=== PATIENT | male | born 1990 | race American Indian/Alaskan Native ===

== ENCOUNTER 2018-03-03 15:45 | Emergency (ER) | payer MEDICARE ==
[2018-03-03 18:52] LABS: Basophils # (Auto) 0.1 K/mm3 (0.0-0.1); Basophils % (Auto) 0.8 % (0.0-1.8); Eosinophils # (Auto) 0.3 K/mm3 (0.0-0.4); Eosinophils % (Auto) 2.3 % (0.0-4.3); Hematocrit 42.1 % (35.5-45.6); Hemoglobin 13.6 gm/dl (11.8-15.2); Lymphocytes # (Auto) 3.1 K/mm3 (1.2-5.4); Lymphocytes % (Auto) 25.4 % (13.4-35.0); Mean Corpuscular HGB Conc 32 % (32-34); Mean Corpuscular Hemoglobin 27 pg (28-32); Mean Corpuscular Volume 85 fl (84-94); Monocytes # (Auto) 0.8 K/mm3 (0.0-0.8); Monocytes % (Auto) 6.8 % (0.0-7.3); Platelet Count 257 K/mm3 (140-440); Red Blood Count 4.98 M/mm3 (3.65-5.03); Red Cell Distribution Width 15.8 % (13.2-15.2)
[2018-03-03 19:08] LABS: Alanine Aminotransferase 24 units/L (7-56); Albumin 4.3 g/dL (3.9-5); BUN/Creatinine Ratio 10; Blood Urea Nitrogen 7 mg/dL (9-20); Calcium 9.7 mg/dL (8.4-10.2); Hemolysis Index 7
[2018-03-03 21:56] VITALS: BP 127/85
--- NOTE | 2018-03-04 00:33 | Emergency Department Report ---
HPI - General Chief Complaint: Psych Time Seen by Provider: 03/04/18 00:18 - [facility] HPI: Room 18 The patient is a 47-year-old male present with a chief complaint of suicidal ideation. The patient states she's been depressed for the past 3 weeks. Patient states she's been taking his Prozac but has not been helping his symptoms. Patient states he's had suicidal ideation for the past 3 weeks. The patient states he had a plan to hang himself from his door. Patient states he never followed through with this plan because his roommate was always present. Patient denies any attempts at actually harming himself within the past 3 weeks. Location: Mental state Duration: 3 weeks Quality: Suicidal Severity: Severe Modifying factors: [see above] Context: [see above] Mode of transportation: [not driving] ED Past Medical Hx - Past Medical History Previous Medical History?: No - Surgical History Past Surgical History?: No - Family History Family history: no significant - Social History Smoking Status: Current Every Day Smoker (1/2 pack per day) Substance Use Type: Alcohol (occasional), Marijuana ED Review of Systems ROS: Stated complaint: SUICIDAL Other details as noted in HPI Constitutional: no symptoms reported Eyes: denies: eye pain ENT: denies: throat pain Respiratory: no symptoms reported Cardiovascular: denies: chest pain Endocrine: no symptoms reported Gastrointestinal: denies: abdominal pain Genitourinary: denies: dysuria Musculoskeletal: denies: back pain Neurological: denies: headache Psychiatric: suicidal thoughts Physical Exam - Physical Exam Vital Signs: Vital Signs 03/03/18 03/03/18 16:16 21:53 Temperature 98.6 F 98.1 F Pulse Rate 96 H 59 L Respiratory 16 18 Rate Blood Pressure 137/73 127/85 O2 Sat by Pulse 98 100 Oximetry Physical Exam: GENERAL: The patient is well-developed well-nourished male lying on stretcher not appearing to be in acute distress. [] HEENT: Normocephalic. Atraumatic. Extraocular motions are intact. Patient has moist mucous membranes. NECK: Supple. Trachea midline CHEST/LUNGS: Clear to auscultation. There is no respiratory distress noted. HEART/CARDIOVASCULAR: Regular. There is no tachycardia. There is no gallop rub or murmur. ABDOMEN: Abdomen is soft, nontender. Patient has normal bowel sounds. There is no abdominal distention. SKIN: There is no rash. There is no edema. There is no diaphoresis. NEURO: The patient is awake, alert, and oriented. The patient is cooperative. The patient has normal speech MUSCULOSKELETAL: There is no evidence of acute injury. ED Course Vital Signs 03/03/18 03/03/18 16:16 21:53 Temperature 98.6 F 98.1 F Pulse Rate 96 H 59 L Respiratory 16 18 Rate Blood Pressure 137/73 127/85 O2 Sat by Pulse 98 100 Oximetry ED Medical Decision Making - Lab Data Result diagrams: 03/03/18 18:27 03/03/18 18:27 - Differential Diagnosis suicidal ideation Critical care attestation.: If time is entered above; I have spent that time in minutes in the direct care of this critically ill patient, excluding procedure time. ED Disposition Clinical Impression: Suicidal ideation Disposition: DC/TX-65 PSY HOSP/PSY UNIT Is pt being admited?: No Does the pt Need Aspirin: No Condition: Stable Referrals: PRIMARY CARE, [Primary Care Provider] - 3-5 Days Time of Disposition: 00:33 (awaiting acceptance)
[2018-03-04 01:07] LABS: Bilirubin,Urine NEG (Negative); Blood,Urine NEG (Negative); Color,Urine Yellow (Yellow); Protein,Urine <15 mg/dL mg/dL (Negative); Urobilinogen,Urine < 2.0 mg/dL (<2.0); WBC,Urine < 1.0 /HPF (0.0-6.0)
[2018-03-04 01:21] LABS: Amphetamine Screen,Urine PRESUMPTIVE NEGATIVE; Benzodiazepines Screen,Urine PRESUMPTIVE NEGATIVE; Cocaine Screen,Urine PRESUMPTIVE NEGATIVE; Methadone Screen,Urine PRESUMPTIVE NEGATIVE; Opiate Screen,Urine PRESUMPTIVE NEGATIVE
[2018-03-04 01:38] LABS: Cannabinoid Screen,Urine PRESUMPTIVE POSITIVE
--- NOTE | 2018-03-04 14:24 | Consultation ---
History of Present Illness - Reason for Consult Consult date: 03/04/18 Reason for consult: Mental Health Evaluation Requesting physician: FELECIA ABBOTT - Chief Complaint Chief complaint: "The voices" - History of Present Psychiatric Illness 47-year-old male present with a chief complaint of suicidal ideation. Today the patient is calm, but disorganized during the assessment. He stated that the voices is causing his depression. He is adamant that hearing voices is his "biggest issues." He wasn't lucid during the interview and had to be redirected several times to keep him on topic. He continue to endorse SI's. Overall, this patient isn't a good historian at this time. Medications and Allergies Allergies Allergy/AdvReac Type Severity Reaction Status Date / Time No Known Allergies Allergy Unverified 03/03/18 16:19 Past psychiatric history - Past Medical History Past Medical History: No medical history Past Surgical History: No surgical history - past Psychiatric treatment and history psychiatric treatment history: The patent is seen by [facility] outpatient behavioral health. He denies a fam psy hx. - Social History Social history: Lives alone, other Mental Status Exam - Vital signs Last Vital Signs Temp 98.1 F 03/03/18 21:53 Pulse 59 L 03/03/18 21:53 Resp 18 03/03/18 21:53 BP 127/85 03/03/18 21:53 Pulse Ox 100 03/03/18 21:53 - Exam Narrative exam: MSE: Appearance: calm, cooperative Behavior: regular eye contact Speech: regular rate and tone Mood: "okay" Affect: constricted Thought Process: disorganized Thought Content: denies HI's and VH's Motor Activity: ambulatory Cognition: A/O x 3 Insight: poor Judgment: poor Results Result Diagrams: 03/03/18 18:27 03/03/18 18:27 Abnormal lab results 03/03/18 03/03/18 03/03/18 Range/Units 18:27 18:27 18:27 WBC 12.2 H (4.5-11.0) K/mm3 MCH 27 L (28-32) pg RDW 15.8 H (13.2-15.2) % Seg Neutrophils # 7.9 H (1.8-7.7) K/mm3 BUN 7 L (9-20) mg/dL Creatinine 0.7 L (0.8-1.5) mg/dL Salicylates < 0.3 L (2.8-20.0) mg/dL Acetaminophen (10.0-30.0) ug/mL 03/03/18 Range/Units 18:27 WBC (4.5-11.0) K/mm3 MCH (28-32) pg RDW (13.2-15.2) % Seg Neutrophils # (1.8-7.7) K/mm3 BUN (9-20) mg/dL Creatinine (0.8-1.5) mg/dL Salicylates (2.8-20.0) mg/dL Acetaminophen < 5.0 L (10.0-30.0) ug/mL All other labs normal. Assessment and Plan Assessment and plan: Impression: Unspecified Mood DO with psy features. Cannabis Use DO. Today the patient is calm, but disorganized during the assessment. The patient endorses SI 's. DDx: Bipolar DO with psychosis, R/O Substance Induced Psychosis/Mood DO Recommendation/Plan: Continue 1013 with placement to [facility] today.
== END 2018-03-04 11:50 ==
LOC: ED 15:45
DX: R45.851 Suicidal ideations (principal); F17.200 Nicotine dependence, unspecified, uncomplicated; F12.90 Cannabis use, unspecified, uncomplicated
CPT/HCPCS: 36415; 80053; 80307; 81001; 85025; 99285; G0480; 80320

== ENCOUNTER 2019-03-31 04:12 | Emergency (ER) | payer MEDICARE ==
--- NOTE | 2019-03-31 04:48 | Emergency Department Report ---
ED Psych HPI - General Stated Complaint: MH EVAL/FINGER LAC Time Seen by Provider: 03/31/19 04:41 - History of Present Illness Initial Comments: Patient is 28 years old male with history of schizophrenia. Patient brought to the emergency room via EMS and police for evaluation of sudden onset of aggressiveness. Patient lived in a jail. EMS stated that patient started fighting with other residents. In the ER patient is agitated and uncooperative. Complaint: other - Related Data Home Medications Medication Instructions Recorded Confirmed Last Taken No Known Home Medications [No 03/31/19 03/31/19 Unknown Reported Home Medications] Allergies Allergy/AdvReac Type Severity Reaction Status Date / Time No Known Allergies Allergy Unverified 03/03/18 16:19 ED Review of Systems ROS: Stated complaint: MH EVAL/FINGER LAC Other details as noted in HPI Comment: All other systems reviewed and negative Constitutional: denies: chills, fever Respiratory: denies: cough, shortness of breath Cardiovascular: denies: chest pain, palpitations Gastrointestinal: denies: abdominal pain, nausea, vomiting ED Past Medical Hx - Social History Smoking Status: Current Every Day Smoker (1/2 pack per day) Substance Use Type: Alcohol (occasional), Marijuana - Medications Home Medications: Home Medications Medication Instructions Recorded Confirmed Last Taken Type No Known Home Medications [No 03/31/19 03/31/19 Unknown History Reported Home Medications] ED Physical Exam - General General appearance: alert, in no apparent distress, other (agitated) - Head Head exam: Present: atraumatic, normocephalic, normal inspection - ENT ENT exam: Present: normal exam, normal orophraynx, mucous membranes moist - Neck Neck exam: Present: normal inspection, full ROM. Absent: tenderness, meningismus, lymphadenopathy - Respiratory Respiratory exam: Present: normal lung sounds bilaterally - Cardiovascular Cardiovascular Exam: Present: regular rate, normal rhythm, normal heart sounds - GI/Abdominal GI/Abdominal exam: Present: soft, normal bowel sounds. Absent: distended, tenderness, guarding, rebound, rigid, organomegaly, mass, bruit, pulsatile mass, hernia - Extremities Exam Extremities exam: Present: normal inspection, full ROM, normal capillary refill. Absent: tenderness - Back Exam Back exam: Present: normal inspection, full ROM. Absent: CVA tenderness (R), CVA tenderness (L) - Neurological Exam Neurological exam: Present: alert, oriented X3, CN II-XII intact, normal gait - Psychiatric Psychiatric exam: Present: agitated. Absent: homicidal ideation, suicidal ideation - Skin Skin exam: Present: warm, intact, normal color ED Course Vital Signs 03/31/19 03/31/19 04:42 07:00 Temperature 98.3 F 97.4 F L Pulse Rate 98 H 90 Respiratory 18 20 Rate Blood Pressure 133/82 Blood Pressure 133/82 138/75 [Left] O2 Sat by Pulse 99 98 Oximetry ED Medical Decision Making - Lab Data Result diagrams: 03/31/19 05:16 03/31/19 05:16 Critical care attestation.: If time is entered above; I have spent that time in minutes in the direct care of this critically ill patient, excluding procedure time. ED Disposition Clinical Impression: Schizophrenia, Acute psychosis Disposition: DC/TX-65 PSY HOSP/PSY UNIT Is pt being admited?: No Condition: Stable Referrals: PRIMARY CARE [Primary Care Provider] - 3-5 Days
[2019-03-31 05:09] LABS: Amphetamine Screen,Urine PRESUMPTIVE NEGATIVE; Benzodiazepines Screen,Urine PRESUMPTIVE NEGATIVE; Cannabinoid Screen,Urine PRESUMPTIVE NEGATIVE; Cocaine Screen,Urine PRESUMPTIVE NEGATIVE; Methadone Screen,Urine PRESUMPTIVE NEGATIVE; Opiate Screen,Urine PRESUMPTIVE NEGATIVE
[2019-03-31 05:11] LABS: Bacteria,Urine 1+ /HPF (Negative); Bilirubin,Urine NEG (Negative); Blood,Urine SM (Negative); Color,Urine Colorless (Yellow); Protein,Urine <15 mg/dL mg/dL (Negative); Urobilinogen,Urine < 2.0 mg/dL (<2.0); WBC,Urine < 1.0 /HPF (0.0-6.0)
[2019-03-31 05:24] LABS: RBC,Urine < 1.0 /HPF (0.0-6.0)
[2019-03-31 05:46] LABS: Basophils # (Auto) 0.1 K/mm3 (0.0-0.1); Basophils % (Auto) 0.6 % (0.0-1.8); Eosinophils # (Auto) 0.1 K/mm3 (0.0-0.4); Hemoglobin 14.2 gm/dl (11.8-15.2); Lymphocytes % (Auto) 30.3 % (13.4-35.0); Mean Corpuscular HGB Conc 33 % (32-34); Mean Corpuscular Volume 85 fl (84-94); Monocytes # (Auto) 0.8 K/mm3 (0.0-0.8); Monocytes % (Auto) 8.5 % (0.0-7.3); Platelet Count 228 K/mm3 (140-440); Red Blood Count 5.07 M/mm3 (3.65-5.03); Red Cell Distribution Width 15.1 % (13.2-15.2)
[2019-03-31 06:01] LABS: BUN/Creatinine Ratio 6; Blood Urea Nitrogen 5 mg/dL (9-20); Calcium 9.2 mg/dL (8.4-10.2); Hemolysis Index 9
[2019-03-31 08:15] VITALS: BP 138/75
--- NOTE | 2019-03-31 09:12 | Consultation ---
History of Present Illness - Reason for Consult Consult date: 03/31/19 Reason for consult: Mental Health Evaluation Requesting physician: YOEL MANJARREZ - Chief Complaint Chief complaint: "I'm from [facility]" - History of Present Psychiatric Illness 28 y.o. Aa male who presented to the ER for aggressive behavior per the local police. Today the patient was uncooperative and delusional during the as sessment. He was asked several questions about his mental health, he replied, "I am from [place]." Several attempts was made to engage the patient, but was unsuccessful. Per the patient's assigned nurse, he became agitated and he would not follow commands. Thorazine 25 mg IM was ordered once for acute psychosis. Medications and Allergies Allergies Allergy/AdvReac Type Severity Reaction Status Date / Time No Known Allergies Allergy Unverified 03/03/18 16:19 Home Medications Medication Instructions Recorded Confirmed Last Taken Type No Known Home Medications [No 03/31/19 03/31/19 Unknown History Reported Home Medications] Active Meds: Active Medications Chlorpromazine HCl (Thorazine) 25 mg IM ONCE ONE Stop: 03/31/19 08:59 Past psychiatric history - Past Medical History Past Medical History: other (Unable to obtain ) Past Surgical History: Other (Unable to obtain) - past Psychiatric treatment and history psychiatric treatment history: Unable to obtain a psy hx and a fam psy hx. - Social History Social history: other (Unabel to obtain ) Mental Status Exam - Vital signs Last Vital Signs Temp 97.4 F L 03/31/19 07:00 Pulse 90 03/31/19 07:00 Resp 20 03/31/19 07:00 BP 138/75 03/31/19 07:00 Pulse Ox 98 03/31/19 07:00 - Exam Narrative exam: MSE: Appearance: uncooperative Behavior: stare with a regular blank rate Speech: regular rate and tone Mood: unable to assess Affect: flat Thought Process: unable to assess logical Thought Content: no gestures of SI/HI's Motor Activity: sitting up in the bed Cognition: alert Insight: unable to assess Judgment: poor Results Result Diagrams: 03/31/19 05:16 03/31/19 05:16 Abnormal lab results 03/31/19 03/31/19 03/31/19 Range/Units 04:45 05:16 05:16 RBC 5.07 H (3.65-5.03) M/mm3 [place] % (Auto) 8.5 H (0.0-7.3) % Sodium 136 L (137-145) mmol/L BUN 5 L (9-20) mg/dL Glucose 105 H (75-100) mg/dL Ur Specific [place] 1.000 L (1.003-1.030) Salicylates (2.8-20.0) mg/dL Acetaminophen (10.0-30.0) ug/mL 03/31/19 03/31/19 Range/Units 05:16 05:16 RBC (3.65-5.03) M/mm3 [place] % (Auto) (0.0-7.3) % Sodium (137-145) mmol/L BUN (9-20) mg/dL Glucose (75-100) mg/dL Ur Specific [place] (1.003-1.030) Salicylates < 0.3 L (2.8-20.0) mg/dL Acetaminophen < 5.0 L (10.0-30.0) ug/mL All other labs normal. Assessment and Plan Assessment and plan: Impression: Unspecified Psychosis. Today the patient was uncooperative and delusional during the assessment. UDS was negative. Recommendation/Plan: Continue 1013. Dispo: The patient was accepted at [facility] for inpatient psy services. Will staff with Dr Nikolas Meyer.
[2019-03-31] MEDS ORDERED: chlorproMAZINE 50 MG/2 ML INJ IM ONE (09:30)
== END 2019-03-31 11:05 ==
LOC: EEVIPCON 04:12 → ED 04:12
DX: F91.1 Conduct disorder, childhood-onset type (principal); F20.9 Schizophrenia, unspecified; F17.200 Nicotine dependence, unspecified, uncomplicated; F12.10 Cannabis abuse, uncomplicated
CPT/HCPCS: 36415; 80048; 80307; 81001; 85025; 96372; 99285; J3230; 80320; G0480

== ENCOUNTER 2019-08-21 23:50 | Emergency (ER) | payer MEDICARE ==
[2019-08-22] MEDS ORDERED: HALOPERIDOL LACTATE 5 MG/1 ML INJ IM PRN (00:29)
[2019-08-22] MEDS ORDERED: LORazepam 2 MG/ML VIAL IM PRN (00:29)
[2019-08-22] MEDS ORDERED: ALPRAZolam 1 MG TAB PO ONE (00:29)
--- NOTE | 2019-08-22 00:30 | Emergency Department Report ---
ED General Adult HPI - General Chief complaint: Psych Stated complaint: MH EVALUATION Time Seen by Provider: 08/22/19 00:19 Source: patient, police, RN notes reviewed, old records reviewed Mode of arrival: Ambulatory Limitations: Other (Patient is disorganized and appears to be psychotic) - History of Present Illness Initial comments: Patient is a 28-year-old gentleman with a history of psychiatric disease. He is brought to the hospital by police department, with the following behavior observed at the time of pickup: "Talking to himself, confused." Police documentation includes that the patient made threats to harm himself, made threats to harm others, appeared upset, appeared cooperative. To me, the patient has a complaint of "I need Wellbutrin." The patient denies physical pain. The patient is a poor historian. He indicates he is not tried to overdose. He is evasive about questions of wanting to harm himself or harm other people. He keeps saying that he "needs Wellbutrin." The patient is not accompanied by friends or family at this time. No additional collateral information is available at this time. The patient himself cannot describe exacerbating or relieving factors, or qualitative nature of his symptoms. -: unknown Quality: other Consistency: other Improves with: other Worsens with: other Associated Symptoms: other - Related Data Home Medications Medication Instructions Recorded Confirmed Last Taken No Known Home Medications [No 03/31/19 03/31/19 Unknown Reported Home Medications] Allergies Allergy/AdvReac Type Severity Reaction Status Date / Time No Known Allergies Allergy Unverified 03/03/18 16:19 ED Review of Systems ROS: Stated complaint: MH EVALUATION Other details as noted in HPI Comment: Unobtainable due to pts medical conditions (The patient is psychotic, delusional and a poor historian. The patient denies physical pain.) ED Past Medical Hx - Past Medical History Previous Medical History?: Yes Hx Psychiatric Treatment: Yes (bipolar-schizophrenia) - Surgical History Past Surgical History?: Yes Additional Surgical History: tonsillectomy - Social History Smoking Status: Current Every Day Smoker Substance Use Type: Alcohol, Marijuana - Medications Home Medications: Home Medications Medication Instructions Recorded Confirmed Last Taken Type No Known Home Medications [No 03/31/19 03/31/19 Unknown History Reported Home Medications] ED Physical Exam - General Limitations: Other (Disorganized behavior) General appearance: alert, anxious, other (Agitated) - Head Head exam: Present: atraumatic, normocephalic - Eye Eye exam: Present: normal appearance, EOMI, other (Visual acuity is intact to finger counting and color perception at a close distance). Absent: nystagmus - ENT ENT exam: Present: normal exam, normal orophraynx, mucous membranes moist, normal external ear exam - Neck Neck exam: Present: normal inspection, full ROM. Absent: tenderness, meningismus - Respiratory Respiratory exam: Present: normal lung sounds bilaterally. Absent: respiratory distress - Cardiovascular Cardiovascular Exam: Present: regular rate, normal rhythm, normal heart sounds. Absent: bradycardia, tachycardia, irregular rhythm, systolic murmur, diastolic murmur, rubs, gallop - GI/Abdominal GI/Abdominal exam: Present: soft. Absent: distended, tenderness, guarding, rebound, rigid, pulsatile mass - Rectal Rectal exam: Present: deferred - Extremities Exam Extremities exam: Present: normal inspection, full ROM, other (2+ pulses noted in the bilateral upper extremities. There is no long bony tenderness. The compartments are soft.). Absent: calf tenderness - Back Exam Back exam: Present: normal inspection, full ROM. Absent: tenderness, CVA tenderness (R), CVA tenderness (L), paraspinal tenderness, vertebral tenderness - Neurological Exam Neurological exam: Present: alert (Patient is alert to name. He knows that he is at the hospital but he does not know which hospital. He knows the year), normal gait, other (There is no facial droop. The tongue is midline. Extraocular movements are intact bilaterally. There is 5 out of 5 strength in bilateral upper and lower extremities. Sensation is intact to light touch bilateral upper and lower extremities. There is a normal gait.) - Psychiatric Psychiatric exam: Present: agitated, suicidal ideation - Skin Skin exam: Present: warm, dry, intact, normal color. Absent: rash ED Course Vital Signs 08/21/19 08/22/19 08/22/19 23:58 00:29 00:30 Temperature 98.2 F Pulse Rate 84 Respiratory 18 18 18 Rate Blood Pressure 125/78 Blood Pressure [Left] O2 Sat by Pulse 97 99 98 Oximetry 08/22/19 08/22/19 08:48 14:44 Temperature 98.4 F 98 F Pulse Rate 92 H 84 Respiratory 17 18 Rate Blood Pressure Blood Pressure 145/73 135/74 [Left] O2 Sat by Pulse 99 97 Oximetry - Reevaluation(s) Reevaluation #1: 08/22/19 01:32 Laboratory studies reviewed and are appreciated. At this point in time, patient does not appear to have an immediate medical contraindication to psychiatric admission, evaluation, consultation. Leukocytosis of 12 nonspecific, this is likely a stress reaction. Do not suspect invasive bacterial infection at this time based off of the history and physical. ED Medical Decision Making - Lab Data Result diagrams: 08/22/19 00:14 08/22/19 00:14 Vital Signs 08/21/19 08/22/19 23:58 00:29 Temperature 98.2 F Pulse Rate 84 Respiratory 18 18 Rate Blood Pressure 125/78 O2 Sat by Pulse 97 99 Oximetry Lab Results 08/22/19 08/22/19 08/22/19 Range/Units 00:14 00:14 00:14 WBC (4.5-11.0) K/mm3 RBC (3.65-5.03) M/mm3 Hgb (11.8-15.2) gm/dl Hct (35.5-45.6) % MCV (84-94) fl MCH (28-32) pg MCHC (32-34) % RDW (13.2-15.2) % Plt Count (140-440) K/mm3 Lymph # Sodium 138 (137-145) mmol/L Potassium 4.5 (3.6-5.0) mmol/L Chloride 103.4 (98-107) mmol/L Carbon Dioxide 20 L (22-30) mmol/L Anion Gap 19 mmol/L BUN 4 L (9-20) mg/dL Creatinine 0.8 (0.8-1.5) mg/dL Estimated GFR > 60 ml/min BUN/Creatinine Ratio 5 % Glucose 98 (75-100) mg/dL Calcium 9.7 (8.4-10.2) mg/dL Urine Color (Yellow) Urine Turbidity (Clear) Urine pH (5.0-7.0) Ur Specific [place] (1.003-1.030) Urine Protein (Negative) mg/dL Urine Glucose (UA) (Negative) mg/dL Urine Ketones (Negative) mg/dL Urine Blood (Negative) Urine Nitrite (Negative) Urine Bilirubin (Negative) Urine Urobilinogen (<2.0) mg/dL Ur Leukocyte Esterase (Negative) Urine WBC (Auto) (0.0-6.0) /HPF Urine RBC (Auto) (0.0-6.0) /HPF Salicylates < 0.3 L (2.8-20.0) mg/dL Urine Opiates Screen Urine Methadone Screen Acetaminophen < 5.0 L (10.0-30.0) ug/mL Ur Barbiturates Screen Ur Phencyclidine Scrn Ur Amphetamines Screen U Benzodiazepines Scrn Urine Cocaine Screen U Marijuana (THC) Screen Plasma/Serum Alcohol (0-0.07) % 08/22/19 08/22/19 08/22/19 Range/Units 00:14 00:14 Unknown WBC 12.7 H (4.5-11.0) K/mm3 RBC 5.23 H (3.65-5.03) M/mm3 Hgb 14.1 (11.8-15.2) gm/dl Hct 43.5 (35.5-45.6) % MCV 83 L (84-94) fl MCH 27 L (28-32) pg MCHC 32 (32-34) % RDW 15.4 H (13.2-15.2) % Plt Count 304 (140-440) K/mm3 Lymph # Seed Core Operator Sodium (137-145) mmol/L Potassium (3.6-5.0) mmol/L Chloride (98-107) mmol/L Carbon Dioxide (22-30) mmol/L Anion Gap mmol/L BUN (9-20) mg/dL Creatinine (0.8-1.5) mg/dL Estimated GFR ml/min BUN/Creatinine Ratio % Glucose (75-100) mg/dL Calcium (8.4-10.2) mg/dL Urine Color Straw (Yellow) Urine Turbidity Clear (Clear) Urine pH 6.0 (5.0-7.0) Ur Specific [place] 1.002 L (1.003-1.030) Urine Protein 30 mg/dl (Negative) mg/dL Urine Glucose (UA) Neg (Negative) mg/dL Urine Ketones Neg (Negative) mg/dL Urine Blood Sm (Negative) Urine Nitrite Neg (Negative) Urine Bilirubin Neg (Negative) Urine Urobilinogen < 2.0 (<2.0) mg/dL Ur Leukocyte Esterase Neg (Negative) Urine WBC (Auto) < 1.0 (0.0-6.0) /HPF Urine RBC (Auto) 2.0 (0.0-6.0) /HPF Salicylates (2.8-20.0) mg/dL Urine Opiates Screen Urine Methadone Screen Acetaminophen (10.0-30.0) ug/mL Ur Barbiturates Screen Ur Phencyclidine Scrn Ur Amphetamines Screen U Benzodiazepines Scrn Urine Cocaine Screen U Marijuana (THC) Screen Plasma/Serum Alcohol < 0.01 (0-0.07) % 08/22/19 Range/Units Unknown WBC (4.5-11.0) K/mm3 RBC (3.65-5.03) M/mm3 Hgb (11.8-15.2) gm/dl Hct (35.5-45.6) % MCV (84-94) fl MCH (28-32) pg MCHC (32-34) % RDW (13.2-15.2) % Plt Count (140-440) K/mm3 Lymph # Sodium (137-145) mmol/L Potassium (3.6-5.0) mmol/L Chloride (98-107) mmol/L Carbon Dioxide (22-30) mmol/L Anion Gap mmol/L BUN (9-20) mg/dL Creatinine (0.8-1.5) mg/dL Estimated GFR ml/min BUN/Creatinine Ratio % Glucose (75-100) mg/dL Calcium (8.4-10.2) mg/dL Urine Color (Yellow) Urine Turbidity (Clear) Urine pH (5.0-7.0) Ur Specific [place] (1.003-1.030) Urine Protein (Negative) mg/dL Urine Glucose (UA) (Negative) mg/dL Urine Ketones (Negative) mg/dL Urine Blood (Negative) Urine Nitrite (Negative) Urine Bilirubin (Negative) Urine Urobilinogen (<2.0) mg/dL Ur Leukocyte Esterase (Negative) Urine WBC (Auto) (0.0-6.0) /HPF Urine RBC (Auto) (0.0-6.0) /HPF Salicylates (2.8-20.0) mg/dL Urine Opiates Screen Presumptive negative Urine Methadone Screen Presumptive negative Acetaminophen (10.0-30.0) ug/mL Ur Barbiturates Screen Presumptive negative Ur Phencyclidine Scrn Presumptive negative Ur Amphetamines Screen Presumptive negative U Benzodiazepines Scrn Presumptive negative Urine Cocaine Screen Presumptive negative U Marijuana (THC) Screen Presumptive negative Plasma/Serum Alcohol (0-0.07) % - Medical Decision Making Differential diagnosis, including but not limited to: Psychosis, medical clearance for psychiatric placement, disorganized behavior Assessment and plan: 28-year-old gentleman who appears to be disorganized, with vacillating statements about wanting to harm himself, perseverating on Wellbutrin. He is afebrile, with reassuring vital signs. His physical examination is unremarkable. Laboratory studies are pending at this time. Patient placed on emergency room hold. Psychiatric consultation is pending at this time. Critical care attestation.: If time is entered above; I have spent that time in minutes in the direct care of this critically ill patient, excluding procedure time. ED Disposition Clinical Impression: Medical clearance for psychiatric admission, Disorganized behavior Disposition: DC/TX-65 PSY HOSP/PSY UNIT Is pt being admited?: No Does the pt Need Aspirin: No Condition: Stable Referrals: PRIMARY CARE, [Primary Care Provider] - 3-5 Days
[2019-08-22 00:37] LABS: Hematocrit 43.5 % (35.5-45.6); Hemoglobin 14.1 gm/dl (11.8-15.2); Mean Corpuscular HGB Conc 32 % (32-34); Mean Corpuscular Volume 83 fl (84-94); Platelet Count 304 K/mm3 (140-440); Red Blood Count 5.23 M/mm3 (3.65-5.03); Red Cell Distribution Width 15.4 % (13.2-15.2)
[2019-08-22 00:55] LABS: BUN/Creatinine Ratio 5; Blood Urea Nitrogen 4 mg/dL (9-20); Calcium 9.7 mg/dL (8.4-10.2); Hemolysis Index 10
[2019-08-22 01:00] LABS: Bilirubin,Urine NEG (Negative); Blood,Urine SM (Negative); Color,Urine Straw (Yellow); Urobilinogen,Urine < 2.0 mg/dL (<2.0); WBC,Urine < 1.0 /HPF (0.0-6.0)
[2019-08-22 01:05] LABS: Amphetamine Screen,Urine PRESUMPTIVE NEGATIVE; Benzodiazepines Screen,Urine PRESUMPTIVE NEGATIVE; Cannabinoid Screen,Urine PRESUMPTIVE NEGATIVE; Cocaine Screen,Urine PRESUMPTIVE NEGATIVE; Methadone Screen,Urine PRESUMPTIVE NEGATIVE; Opiate Screen,Urine PRESUMPTIVE NEGATIVE
[2019-08-22 04:24] LABS: Total Cells Counted 100
[2019-08-22 04:26] LABS: Platelet Estimate Consistent w Auto
[2019-08-22 14:46] VITALS: BP 135/74
== END 2019-08-22 15:30 ==
LOC: ED 23:50
DX: R46.89 Other symptoms and signs involving appearance and behavior (principal); F31.9 Bipolar disorder, unspecified; F20.9 Schizophrenia, unspecified; F17.200 Nicotine dependence, unspecified, uncomplicated; F12.10 Cannabis abuse, uncomplicated
CPT/HCPCS: 36415; 80048; 80307; 81001; 82550; 83735; 85007; 85025; 96372; 99285; J1630; J2060; 80320; G0480